=== PATIENT | female | born 1995 | race Hispanic/Latino ===

== ENCOUNTER 2022-12-01 14:41 | Emergency (ER) | payer MEDICAID, OTHER ==
[~2022-12-01] VITALS: Ht 162.6 cm; Wt 70.3 kg
[~2022-12-01 14:41] MED LIST: PNV1TABL17 PO
[2022-12-01] MEDS ORDERED: NAPR-1084 PO (15:59)
[2022-12-01 17:17] VITALS: BP 111/65
== END 2022-12-01 17:43 | disposition home or self-care (01) ==
LOC: EDH 14:41
DX: N60.01 Solitary cyst of right breast (principal); Z79.899 Other long term (current) drug therapy; Z98.890 Other specified postprocedural states
CPT/HCPCS: 71045

== ENCOUNTER 2023-07-14 22:52 | Emergency (ER) | payer MEDICAID ==
[~2023-07-14] VITALS: Ht 162.6 cm; Wt 78.0 kg
[~2023-07-14 22:52] MED LIST changes: +NAPR-1084 PO
[2023-07-15 00:32] VITALS: BP 118/74; PULSE 74; RESP 16; O2SAT 100
== END 2023-07-15 00:34 | disposition home or self-care (01) ==
LOC: EDH 22:52
DX: K59.00 Constipation, unspecified (principal)
CPT/HCPCS: 74018